=== PATIENT | female | born 1990 | race Asian ===

== ENCOUNTER 2020-06-12 03:16 | Inpatient (IN) ==
[2020-06-12] MEDS ORDERED: Lactated Ringers 1000 ml BAG 1,000 ML IV ONE (05:09)
[2020-06-12] MEDS ORDERED: Buffered Lidocaine 1% SYRIN 1 ml INTRADERM ONE (05:09)
[2020-06-12] MEDS ORDERED: Lactated Ringers 1000 ml BAG 1,000 ML IV SCH ×2 (06:00→16:00)
[2020-06-12 06:09] LABS: Urine Benzodiazepine Screen None Detected (None Detect); Urine Cannabinoids Screen None Detected (None Detect); Urine Opiates Screen None Detected (None Detect)
[2020-06-12] MEDS ORDERED: Oxytocin 10 UNITS/ML 1 ML VIAL IM ONE (08:56)
[2020-06-12] MEDS ORDERED: Oxytocin in LR 20 UNITS/1,000 ML BAG IVPB SCH (14:00)
[2020-06-12] MEDS ORDERED: Dibucaine 1% OINT 28.35 GM TUBE PR PRN (15:16)
[2020-06-12] MEDS ORDERED: Witch Hazel PAD JAR TOPICAL PRN (15:16)
[2020-06-12] MEDS ORDERED: Lidocaine 1% VIAL 10 MG/ML VIAL ONE (16:21)
[2020-06-12] MEDS ORDERED: Oxytocin 10 UNITS/ML 1 ML VIAL ONE (16:21)
[2020-06-12] MEDS ORDERED: Ammonia Inhalant 1 EA AMP ONE (17:55)
[2020-06-13 07:27] LABS: ABS Eosinophils 0.1 10^3/ul (0-0.6); ABS Lymphocytes 1.4 10^3/ul (1.0-4.8); ABS Neutrophils 12.6 10^3/ul (1.5-7.7); Eosinophil % 0.8 %; Hematocrit 37 % (35-47); Lymphocyte % 9.2 %; Mean Corpuscular HGB Conc 33 g/dL (31-36); Mean Corpuscular Hemoglobin 30 pg (27-31); Mean Corpuscular Volume 90 fL (80-97); Mean Platelet Volume 9.8 fL (7.4-10.4); Platelet Count 175 10^3/uL (150-450); Red Blood Count 4.04 10^6 /uL (3.70-4.87); Red Cell Distribution Width 14 % (10-15); White Blood Count 15.2 10^3/uL (3.5-10.8)
[2020-06-14 08:08] VITALS: BP 103/59
== END 2020-06-14 13:41 | disposition home or self-care (01) | DRG 560 ==
LOC: MCHOBOUT 03:16 → MCHOB 05:06
PROVIDERS: ADMIT Obstetrics & Gynecology; ATTEND Obstetrics & Gynecology